=== PATIENT | male | born 1990 | race Caucasian/White ===

== ENCOUNTER 2016-12-25 21:41 | Inpatient (IN) ==
[~2016-12-25 21:41] MED LIST: ATIVAN ONE; BENADRYL ONE; HALDOL ONE
[2016-12-25] MEDS ORDERED: ATIVAN IM ONE (21:50)
[2016-12-25] MEDS ORDERED: BENADRYL IM ONE (21:51)
[2016-12-25] MEDS ORDERED: HALDOL IM ONE (21:51)
[2016-12-25] MEDS ORDERED: NS 1,000 ML IV ONE ×2 (21:51→21:52)
[2016-12-25 22:05] LABS: ALLEN TEST YES; BE 0.6 mmoll (-3.0-3.0); BLOOD TYPE ARTERIAL; DRAW SITE R RADIAL; METHB 1.6 % (0.0-1.5); O2(CT) 18.2 mL/dL (15.0-23.0); PO2(98.6) 83 mmHg (60-100); SAMPLE BLOOD; SAO2 99.4 % (95.0-100.0); THB 15.1 g/dL (11.5-17.4); pH(98.6) 7.31 (7.35-7.45)
[2016-12-25 22:06] LABS: MODALITY CANNULA; PCO2(98.6) 56 mmHg (35-45)
[2016-12-25 22:15] LABS: MANUAL DIFF NEEDED? NO; URINE CULTURE NEEDED? NO; URINE MICRO REVIEW NEEDED? NO; URINE SOURCE CATH
[2016-12-25 22:19] LABS: BASO% 0.4 % (0.0-0.8); EOS# 0.36 X1000 (0.0-0.7); HEMATOCRIT 44.8 % (42.0-52.0); HEMOGLOBIN 15.8 g/dL (14.0-18.0); LYMPH# 2.99 X1000 (1.2-3.4); LYMPH% 41.9 % (20.5-51.1); MCH 31.1 PG (27-31); MCHC 35.3 g/dL (33-37); MCV 88.2 FL (81-99); MONO# 0.75 X1000 (0.11-0.59); MONO% 10.5 % (1.7-9.3); MPV 12.5 FL (7.4-10.4); NEUT% 42.2 % (42.2-75.2); PLT 130 X1000 (130-400); RBC 5.08 XMIL (4.7-6.1)
[2016-12-25 22:22] LABS: BILIRUBIN URINE NEGATIVE (NEGATIVE); BLOOD URINE NEGATIVE (NEGATIVE); COLOR YELLOW; GLUCOSE URINE NEGATIVE (NEGATIVE); LEUKOCYTES URINE NEGATIVE (NEGATIVE); NITRITE URINE NEGATIVE (NEGATIVE); PROTEIN URINE NEGATIVE (NEGATIVE); SP GRAVITY URINE 1.026; TURBIDITY URINE CLEAR (CLEAR); UROBILINOGEN URINE 3 mg/dL (NORMAL)
[2016-12-25 22:23] LABS: UR EPITHELIAL CELLS <10 /HPF (<10); URINE BACTERIA NEGATIVE /HPF; URINE RBC <10 /HPF (<10); URINE WBC <10 /HPF (<10)
[2016-12-25 22:32] LABS: UR AMPHETAMINES QUAL NONE DETECTED (NONE DETECT); UR BARBITUATES QUAL NONE DETECTED (NONE DETECT); UR BENZODIAZEPIN QUAL PRESUMPTIVE POSITIVE (NONE DETECT); UR CANNABINOIDS QUAL PRESUMPTIVE POSITIVE (NONE DETECT); UR COCAINE QUAL NONE DETECTED (NONE DETECT); UR METHADONE QUAL NONE DETECTED (NONE DETECT); UR OPIATES QUAL NONE DETECTED (NONE DETECT); UR OXYCODONE QUAL NONE DETECTED (NONE DETECT); UR PCP QUAL NONE DETECTED (NONE DETECT)
[2016-12-25 22:37] LABS: AGAP 13; ALBUMIN 4.3 g/dL (3.5-5.0); ALKALINE PHOSPHATASE 61 U/L (32-122); BUN 15 mg/dL (8-22); CALCIUM 8.7 mg/dL (8.8-10.2); CHLORIDE 100 mmol/L (98-107); COSMO 280; GOT 38 U/L (10-34); GPT 43 U/L (10-44); POTASSIUM 4.1 mmol/L (3.5-5.1); SODIUM 140 mmol/L (136-145); TCO2 27 mmol/L (25-35); TOTAL BILIRUBIN 0.45 mg/dL (0.20-1.00); TOTAL PROTEIN 6.8 g/dL (6.3-8.3)
[2016-12-25 22:43] LABS: CK PROFILE 222 U/L (24-204)
[2016-12-25 22:59] LABS: CK INDEX 1.1 (0.0-2.5); CK-MB 2.54 ng/mL (0.0-5.0)
[2016-12-26] MEDS ORDERED: ATIVAN IV PRN (00:02)
--- NOTE | 2016-12-26 00:05 | HISTORY AND PHYSICAL ---
CHIEF COMPLAINT: Suspected drug overdose with spice. HISTORY OF PRESENTING ILLNESS: A 26-year-old male, apparently was brought to the emergency department very combative and agitated. It was suspected that he possibly had overdosed with spice. He was brought to the emergency department, and he was given Haldol, Ativan and Benadryl. He was moderately sedated at the time of my examination, not much history could be obtained from him. The remainder of his history is obtained from his previous records. PAST MEDICAL HISTORY: Unknown. PAST SURGICAL HISTORY: Unknown. ALLERGIES: No known drug allergies. CURRENT MEDICATIONS: As in the MAR. SOCIAL HISTORY: Unknown. FAMILY HISTORY: Unknown. REVIEW OF SYSTEMS: Unable to obtain. PHYSICAL EXAMINATION: GENERAL: The patient is moderately sedated. VITAL SIGNS: Temperature 97.6, pulse 103, respirations 18, blood pressure 136/ 74. He is saturating 97%. HEENT: Atraumatic, normocephalic. NECK: No masses. CHEST: Clear to auscultation. CARDIOVASCULAR: Regular rate and rhythm. ABDOMEN: Soft. Positive bowel sounds. EXTREMITIES: No edema. NEURO: He is sedated. : No bladder distention. SKIN: Warm. LABORATORIES AND STUDIES: WBCs 7.13, hemoglobin 15.8, hematocrit 44.8, platelets is 130,000. Sodium 140, potassium 4.1, chloride 100, CO2 of 27, BUN is 15, creatinine is 1.1 , glucose is 87. ASSESSMENT: A 26-year-old male apparently was brought to the emergency department, very agitated and combative, and he was given Ativan, and Benadryl. He was sedated, and the patient will require ICU admission for further management. ASSESSMENT: Suspected drug overdose with spice. PLAN: 1. We will admit patient to ICU. 2. We will continue to monitor patient closely, his respiratory status. 3. Continue with IV fluid hydration. 4. We will put patient on DVT prophylaxis with SCD's. 5. We will continue to follow and reassess. cc: Foster Mullins MD MTDD
[2016-12-26] MEDS: NS 1,000 ML IV SCH ×2 (00:13→07:40)
[2016-12-26 06:12] LABS: MANUAL DIFF NEEDED? NO
[2016-12-26 06:13] LABS: BASO% 0.3 % (0.0-0.8); EOS# 0.23 X1000 (0.0-0.7); EOS% 2.3 % (0.0-10.0); HEMATOCRIT 42.7 % (42.0-52.0); HEMOGLOBIN 14.6 g/dL (14.0-18.0); IMM GRAN# 0.02 X1000 (0.0-0.04); IMM GRAN% 0.2 % (0.0-0.5); LYMPH# 1.57 X1000 (1.2-3.4); LYMPH% 15.5 % (20.5-51.1); MCH 30.8 PG (27-31); MCHC 34.2 g/dL (33-37); MCV 90.1 FL (81-99); MONO% 6.9 % (1.7-9.3); MPV 12.6 FL (7.4-10.4); NEUT% 74.8 % (42.2-75.2); PLT 112 X1000 (130-400); RBC 4.74 XMIL (4.7-6.1)
[2016-12-26 06:30] LABS: AGAP 11; BUN 13 mg/dL (8-22); CALCIUM 7.9 mg/dL (8.8-10.2); CHLORIDE 109 mmol/L (98-107); COSMO 286; POTASSIUM 4.5 mmol/L (3.5-5.1); SODIUM 143 mmol/L (136-145); TCO2 23 mmol/L (25-35)
--- NOTE | 2016-12-26 07:26 | Diag Imaging Result Document ---
PROCEDURE NAME: CHEST-PORTABLE - 12/25/2016 SUPINE PORTABLE CHEST: COMPARISON: Compared to 05/17/2014. FINDINGS: Poor inspiratory effort. The heart is mildly prominent although this may be due to the portable supine technique. Mild increased interstitial markings believed to be the vasculature. No consolidation. No pleural effusions identified. IMPRESSION: Mild pulmonary edema.
--- NOTE | 2016-12-26 08:58 | Diag Imaging Result Document ---
PROCEDURE NAME: HEAD W/O CONTRAST - 12/25/[address]: A CT dose reduction protocol was used. COMPARISON: None. FINDINGS: The ventricles and sulci are normal in size and contour. There is no mass, hemorrhage, or evidence of acute ischemia. The bony calvaria is intact. The visualized paranasal sinuses and mastoid air cells are clear. IMPRESSION: Negative head CT. MTDD
[2016-12-26] MEDS ORDERED: NS 1,000 ML IV SCH (13:43)
[2016-12-26] MEDS ORDERED: NICODERM PATCH TD SCH (13:45)
--- NOTE | 2016-12-26 15:58 | PROGRESS NOTE ---
DATE: 12/26/2016 SUBJECTIVE: The patient is resting comfortably in bed. No acute events noted overnight. OBJECTIVE: Vital Signs: Temperature 97.9 degrees, blood pressure 102/56, heart rate 46, heart rate 13, O2 saturations 99% on 2 L nasal cannula. General: This is a young male, lying in bed, in no acute distress. Head: Normocephalic, atraumatic. Heart: S1, S2 normal. Bradycardic. Lungs: Clear to auscultation bilaterally. No wheezes, no rales. No rhonchi. Abdomen: Positive bowel sounds. Soft, nontender, nondistended. Extremities: No edema. No cyanosis. No calf tenderness. Neurologic: The patient does awaken, but goes to sleep pretty quickly. He is able to move all 4 extremities. LABS: White blood cell count 10, hemoglobin 14, hematocrit 42, platelets 112,000. Sodium 143, potassium 4.5, chloride 109, CO2 23, BUN 13, creatinine 0.9. Glucose 106. Calcium 7.9. ASSESSMENT AND PLAN: 1. Drug overdose. Most likely, spice. The patient is starting to wake up. We will continue to monitor the patient's mental status closely. Continue with gentle IV fluid hydration. 2. Tobacco dependence. We will start the patient on a NicoDerm patch. 3. Thrombocytopenia. Will monitor this closely. The patient is not on heparin. 4. Gastrointestinal prophylaxis. Will start the patient on omeprazole. 5. The patient is stable for transfer to the medical floor. cc: Maria L Haro MD
[2016-12-26 16:40] VITALS: BP 130/60
[2016-12-27] MEDS ORDERED: PRILOSEC PO SCH (07:00)
--- NOTE | 2017-01-04 22:10 | PROVIDER DOCUMENTATION ---
This chart was entered by Santi Springer Scribe, acting as scribe for Donnie Dunn MD. [id number] Abuse/Overdose - General Chief Complaint: Overdose Stated Complaint: overdose Time Seen by Provider: 12/25/16 21:50 Source: patient, EMS Allergies/Adverse Reactions: Allergies Allergy/AdvReac Type Severity Reaction Status Date / Time Penicillins Allergy Unknown Unknown Verified 06/09/15 13:53 amoxicillin trihydrate * AdvReac Intermediate NAUSEA/VOMI Verified 06/09/15 13: 53 [From Amoxil] TING Home Medications: Home Medication List Medication Instructions Recorded Confirmed Last Taken Type NK [No Home Medications] 12/25/16 12/25/16 Unknown History - History of Present Illness-Drug/Alcohol Nature of Presenting Problem: Pt is a 26 yom who presents to ER via EMS for possible overdose. EMS reports that family called 911 after finding pt at home. Pt is combative and was intermittently going in and out of consciousness. This episode of drinking or use began:: unsure Severity: reports: severe Psychiatric Complaints: reports: agitated, altered mental status, hostile Any injuries associated with this episode of intoxication?: No Similar Symptoms Previously?: No Recently seen or treated by another doctor?: No Review of Systems - Adult - REVIEW OF SYSTEMS - ADULT ROS:: limited per condition Constitutional: denies: chills, fever, fatique, night sweats, weight gain, weight loss Eyes: reports: no symptoms reported Ears, Nose, Mouth & Throat: reports: no symptoms reported Cardiovascular: reports: no symptoms reported Respiratory: reports: no symptoms reported Gastrointestinal: reports: vomiting. denies: abdominal pain, hematemesis, constipation, diarrhea, difficulty swallowing, frequent heartburn, nausea, poor appetite, rectal bleeding Genitourinary: reports: no symptoms reported Musculoskeletal: reports: no symptoms reported Integumentary: reports: no symptoms reported Neurological: reports: no symptoms reported Psychiatric: reports: alcohol/drug dependence, emotional problems, other ( combative). denies: anxiety, anti-depressant use, depression, insomnia, panic attacks, suicidal thoughts Endocrine: reports: no symptoms reported Hematologic/Lymphatic: reports: no symptoms reported Allergic/Immunologic: reports: no symptoms reported All Other Systems: Reviewed and Negative Past History - Adult - PAST MEDICAL HISTORY-ADULT Review of Records: reports: Nursing Assessment Review, Medications Reviewed Respiratory: reports: asthma - IMMUNIZATION STATUS Childhood Immunizations: See Nurse Assessment Flu Vaccine: See Nurse Assessment Physical Exam-General - PHYSICAL EXAM-ADULT Exam Limited by: Pt intermittently conscious; combative when awake - CONSTITUTIONAL General Appearance: severe distress, combative. negative: appears well, alert, no apparent distress, mild distress, moderate distress - PSYCHIATRIC Psych/Mental Status: anxious, paranoid, other (combative). negative: normal mood/affect, normal thought content, normal thought process, oriented x 3 Progress - PLAN OF CARE/RESULTS Progress/Plan/Lab Results: Orders Category Date Time Status Admit - [facility] Routine AdmDCTranf 12/25/16 23:37 Ordered Activity - Up with Assistance ORDERED Care 12/25/16 23:37 Active Blake Cath Insertion ORDERED Care 12/25/16 21:52 Completed Intake and Output-Strict ORDERED Care 12/25/16 23:37 Active Vital Signs Order Q 8-HR ASSESS Care 12/25/16 23:37 Completed CHEST-PORTABLE [RAD] Stat Exams 12/25/16 21:53 Completed HEAD W/O CONTRAST [CT] Stat Exams 12/25/16 21:54 Completed ABG [RESP] Routine Lab 12/25/16 21:56 Completed ALCOHOL BLOOD Stat Lab 12/25/16 21:50 Completed BASIC METABOLIC PANEL [CHEM] Routine Lab 12/26/16 06:10 Completed CBC WITH DIFF [HEME] Routine Lab 12/26/16 06:10 Completed CBC WITH ELECTRONIC DIFF [HEME] Stat Lab 12/25/16 21:50 Completed CK PROFILE [SP CHEM] Stat Lab 12/25/16 21:50 Completed CMP [COMPREHENSIVE METABOLIC PANEL] [CHEM] Stat Lab 12/25/16 21:50 Completed MAGNESIUM [CHEM] Stat Lab 12/25/16 21:50 Completed TROPONIN T Stat Lab 12/25/16 21:50 Completed UA NIMS W/REFLEX CULT [URINALYSIS] Stat Lab 12/25/16 21:50 Completed UDS [URINE DRUG SCREEN] Stat Lab 12/25/16 21:50 Completed 0.9% Sodium Chloride Inj [Ns] 1,000 ml Med 12/25/16 23:37 Discontinued IV 125 mls/hr 0.9% Sodium Chloride Inj [Ns] 1,000 ml Med 12/25/16 21:51 Discontinued IV 999 mls/hr 0.9% Sodium Chloride Inj [Ns] 1,000 ml Med 12/25/16 21:52 Discontinued IV 999 mls/hr Diphenhydramine [Benadryl] Med 12/25/16 21:37 Discontinued 50 mg .ROUTE .STK-MED ONE Diphenhydramine [Benadryl] Med 12/25/16 21:51 Discontinued 50 mg IM NOW ONE Haloperidol Lactate [Haldol] Med 12/25/16 21:37 Discontinued 10 mg .ROUTE .STK-MED ONE Haloperidol Lactate [Haldol] Med 12/25/16 21:51 Discontinued 10 mg IM NOW ONE Lorazepam [Ativan] Med 12/25/16 21:37 Discontinued 2 mg .ROUTE .STK-MED ONE Lorazepam [Ativan] Med 12/25/16 21:50 Discontinued 2 mg IM NOW ONE Telemetry [OM.EQ] Routine Oth 12/25/16 23:37 Active Transfer/Admit Order [TRANSFER] Routine Transfer 12/25/16 23:18 Completed Result Diagrams: 12/26/16 06:10 12/26/16 06:10 - REASSESSMENT Reassessment #1 Time Reassessed: 22:45 Status: other (Family at bedside report that pt has hx of IV drug abuse and has been behaving oddly for the past 2 weeks. Family also reports that they noticed a "funny smell" at home, shortly before pt became combative/obtunded.) - XRAY 1 XRAY: Bilateral XRAY Study: Chest Impression: See EMR Report XRAY Interpretation: cardiomegaly, otherwise normal - CT/MRI 1 CT Study: Head Impression: See EMR Report CT Results: Mild paranasal sinus disease - CONSULTS/PCP/HOSPITALIST Notification #1 *Consult/PCP/Hospitalist*: Dr. Mullins (Hospitalist) Time Discussed: 23:00 Consult Disposition: Admit Departure - Departure Time of Disposition Decision: 22:59 DIAGNOSIS: Drug overdose Disposition: ADMITTED INPATIENT 09 Certified Medical Emergency: Emergent Condition: Stable - Critical Care Note This patient required my direct personal management.: Yes This chart was documented by the indicated scribe, (Santi Springer Scribe) and accurately reflects the services I performed and decisions made by me, Donnie Brand MD, as attested by the provider's signature.
--- NOTE | 2017-01-07 18:25 | DISCHARGE SUMMARY ---
ADMISSION DATE: 12/25/2016 DISCHARGE DATE: 12/26/2016 FINAL DISCHARGE DIAGNOSES: 1. Drug overdose, suspected to be spice. 2. Tobacco dependence. 3. Thrombocytopenia. HOSPITAL COURSE: Mr. Triplett is a 26-year-old male with a history of polysubstance abuse, who was admitted with a suspected spice overdose. The patient was too belligerent and altered to answer any questions on admission. He was admitted to the ICU and started on IV fluids. By the following morning, the patient was noted to be awake and alert. When questioned about what he took, the patient stated that he could not really remember. The patient ultimately decided to leave the hospital against medical advice on December 26, 2016. cc: Maria L Haro MD
== END 2016-12-26 16:25 | disposition left against medical advice (07) ==
LOC: ED 21:41 → ICU 23:33 → SUATTDRO 23:33
PROVIDERS: ATTEND Internal Medicine